=== PATIENT | male | born 1940 | race Caucasian/White ===

== ENCOUNTER 2017-04-08 12:23 | Emergency (ER) | payer OTHER ==
[2017-04-08 12:28] VITALS: BMI 26.6
[2017-04-08] MEDS ORDERED: SODIUM CHLORIDE 1,000 ML IV STA ×2 (13:28→15:34)
[2017-04-08] MEDS ORDERED: DIPHTH,PERTUSS(ACELL),TET 0.5 ML DISP.SYRIN IM ONE (13:28)
[2017-04-08 14:10] LABS: BASOPHIL 0.6 % (0-2.0); EOSINOPHIL 0.1 % (0-4.5); MCH 29.6 pg (25.7-33.7); MCHC 33.8 g/dl (32.0-35.9); MEAN CELL VOLUME 87.5 fl (80-96); MEAN PLT VOLUME 8.8 fl (7.5-11.1); NEUTROPHILS 87.9 % (42.8-82.8); RDW 14.1 % (11.9-15.9); WHITE BLOOD COUNT 15.5 K/mm3 (4.0-10.0)
--- NOTE | 2017-04-08 14:33 | PDOC ---
History of Present Illness - General Chief Complaint: Syncope/Near Syncope Stated Complaint: SYNCOPE, LAST WELL KNOWN 11:30PM 04/07 Time Seen by Provider: 04/08/17 13:20 History Source: Patient Exam Limitations: No Limitations - History of Present Illness Initial Comments: 04/08/17 14:22 76-year-old male presents to the emergency room with complaints of laceration to his right foot along with scratches to his lower extremities. Patient states unsure exactly how he fell but states went to bed at around 11:30 and next thing he knows he woke up on the floor with a broken nightstand nearby and lacerations to lower extremities. Patient states unsure exactly what happened and denies any chest pain, headache, visual changes, fever or chills presently. Patient states is on baby aspirin along with Plavix but denies any other blood thinners. Patient denies any recent illness, recent change in diet, or history of seizures. 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 Presenting Symptoms: Syncope Timing/Duration: reports: gone now Associated Symptoms: Yes: Syncope Past History - Travel Traveled outside of the country in the last 30 days: Yes - Past Medical History Allergies/Adverse Reactions: Allergies Allergy/AdvReac Type Severity Reaction Status Date / Time Sulfa (Sulfonamide Allergy Verified 04/08/17 12:28 Antibiotics) Home Medications: Ambulatory Orders Insulin Glargine,Hum.rec.anlog [Lantus (10mL VIAL) -] 50 units SQ HS 08/12/14 Metoprolol Succinate [Toprol XL -] 200 mg PO DAILY 08/12/14 Pantoprazole Sodium [Protonix] 40 mg PO DAILY 08/12/14 Amlodipine Besylate 5 mg PO DAILY 05/27/15 Insulin Lispro [Humalog] 5 unit SQ TID 05/27/15 Furosemide [Lasix -] 20 mg PO DAILY #30 tablet 10/12/15 Tamsulosin HCl [Flomax -] 0.4 mg PO DAILY@0830 #0 cap.er.24h 10/12/15 Aspirin [ASA -] 81 mg PO DAILY 04/08/17 Clopidogrel Bisulfate [Clopidogrel] 75 mg DAILY 04/08/17 Ramipril 5 mg PO DAILY 04/08/17 Anemia: No Asthma: No Cancer: Yes (larynx) Cardiac Disorders: Yes ([place] 2002, 12 stents) CVA: No COPD: No CHF: No Dementia: No Diabetes: Yes GI Disorders: No Disorders: No HTN: Yes Hypercholesterolemia: Yes Liver Disease: No Seizures: No Thyroid Disease: No - Surgical History Abdominal Surgery: No Appendectomy: Yes Cardiac Surgery: Yes (12 stents) Cholecystectomy: Yes Lung Surgery: No Neurologic Surgery: No Orthopedic Surgery: No - Psycho/Social/Smoking Cessation Hx Anxiety: No Suicidal Ideation: No Smoking History: Never smoked Have you smoked in the past 12 months: No If you are a former smoker, when did you quit?: 5 YRS Cigars Per Day: 0 Information on smoking cessation initiated: No Hx Alcohol Use: No Drug/Substance Use Hx: No Substance Use Type: None Hx Substance Use Treatment: No Patient Lives Alone: Yes Lives with/in: lives alone Cardiac Specific PMH - Complaint Specific PMHX Cardiac Stent: Yes Pacemaker: No Review of Systems - Review of Systems Able to Perform ROS?: Yes Constitutional: No: Symptoms Reported HEENTM: No: Symptoms Reported Respiratory: No: Symptoms reported Cardiac (ROS): Yes: Syncope ABD/GI: No: Symptoms Reported : No: Symptoms Reported Musculoskeletal: No: Symptoms Reported Integumentary: Yes: Other (laceration to right 3rd toe) Neurological: No: Weakness, Dizziness Hematologic/Lymphatic: No: Symptoms Reported *Physical Exam - Vital Signs Last Vital Signs Temp Pulse Resp BP Pulse Ox 98.1 F 82 18 141/60 100 04/08/17 18:36 04/08/17 18:36 04/08/17 18:36 04/08/17 18:36 04/08/17 16:03 - Physical Exam General Appearance: Yes: Nourished, Appropriately Dressed. No: Apparent Distress HEENT: positive: EOMI, OFELIA, TMs Normal (no hemotympanum), Pharynx Normal. negative: Pale Conjunctivae Neck: positive: Supple. negative: Tender, Decreased range of motion Respiratory/Chest: positive: Lungs Clear, Normal Breath Sounds. negative: Respiratory Distress, Accessory Muscle Use Cardiovascular: positive: Regular Rhythm, Regular Rate. negative: Murmur Gastrointestinal/Abdominal: positive: Soft. negative: Tenderness Musculoskeletal: negative: CVA Tenderness, Vertebral Tenderness Extremity: positive: Normal Capillary Refill, Normal Inspection, Normal Range of Motion. negative: Tender Integumentary: positive: Normal Color, Warm, Other (noted superficial abrasions to bilateral anterior lower legs. noted 2cm linear laceration over dosal aspect of rt 3rd toe) Neurologic: positive: Normal Mood/Affect, Motor Strength 5/5 (ambulatory ) Heart Score/ECG Review - History History: Slightly suspicious - Electrocardiogram EKG: Normal - Age Age: >/= 65 - Risk Factors Risk Factors Heart Score: Yes Hx Hypercholesterolemia, Yes Hx Hypertension Based on the list above the patient has:: 1-2 risk factors - Troponin Troponin: </= normal limit - Score Heart Score - Total: 3 - ECG Intrepretation Rhythm: Regular Rhythm Comment:: 04/08/17 14:39 nsr at [address] depression or elevation. Procedures - Laceration/Wound Repair Right 3rd digit Wound Length: to 2.5 cm Wound Explored: clean Wound's Depth, Shape: superficial, linear Irrigated w/ Saline: Yes Betadine Prep: Yes Wound Repaired With: Steri-strips, Dermabond Sterile Dressing Applied: Yes ED Treatment Course - LABORATORY CBC & Chemistry Diagram: 04/08/17 13:35 04/08/17 13:35 - ADDITIONAL ORDERS Additional order review: 04/08/17 13:35 RBC 4.52 D MCV 87.5 MCHC 33.8 RDW 14.1 MPV 8.8 Neutrophils % 87.9 H D Lymphocytes % 4.4 L D Monocytes % 7.0 Eosinophils % 0.1 D Basophils % 0.6 - RADIOLOGY Radiology Studies Ordered: Category Date Time Status CERVICAL SPINE CT W/O CONTR [CT] Stat CT Scan 04/08/17 13:[address] WITHOUT CONTRAST [CT] Stat CT Scan 04/08/17 13:52 Completed CHEST X-RAY PORTABLE* [RAD] Stat Radiology 04/08/17 13:28 Completed TOE(S) RIGHT [RAD] Stat Radiology 04/08/17 13:52 Completed - Medications Given in the ED: ED Medications Discontinued Medications Generic Name Dose Route Start Last Admin Trade Name Freq PRN Reason Stop Dose Admin Aspirin 325 mg 04/08/17 17:37 04/08/17 18:18 Asa - PO 04/08/17 17:38 325 mg ONCE ONE Administration Diphtheria/Tetanus/Acell Pertussis 0.5 ml 04/08/17 13:28 04/08/17 13:54 Boostrix - IM 04/08/17 13:29 0.5 ml .ONCE ONE Administration Sodium Chloride 1,000 mls @ 1,000 mls/hr 04/08/17 13:28 04/08/17 14:00 Normal Saline - IV 04/08/17 14:27 1,000 mls/hr ASDIR STA Administration Sodium Chloride 1,000 mls @ 1,000 mls/hr 04/08/17 15:34 04/08/17 16:03 Normal Saline - IV 04/08/17 16:33 1,000 mls/hr ASDIR STA Administration Medical Decision Making - Critical Care Time Total Critical Care Time (minutes): 45 Critical Care Statement: The care of this patient involved high complexity decision making to prevent further life threatening deterioration of the patient 's condition and/or to evaluate & treat vital organ system(s) failure or risk of failure. - Medical Decision Making 04/08/17 14:40 pt s/p syncopal episode last night. Pt unable to recall the episode. Pt with laceration to rt foot. Pt concerning for cardiac vs neurological deficit. Patient ordered for head and cervical ct. Patient also ordered for labs, right toe x-ray, tetanus, and chest x-ray. 04/08/17 16:50 Toe x-ray shows no acute fracture. Findings raising possibility of gout. Head CT and cervical CT negative. Chest x-ray otherwise negative. Patient ordered for second liter of normal saline bolus secondary to elevated CK and troponin of 0.17. Due to patient's history of cardiac disease with stents states has been discussed patient's operating room aide Dr. Rodrigez at [facility] who wants patient transferred to [facility] for cardiac. Patient denies chest pain, shortness of breath palpitations nausea or dizziness. Patient on monitor with normal sinus rhythm. 04/08/17 16:53 Laboratory Tests 04/08/17 04/08/17 04/08/17 13:35 13:35 13:35 WBC 15.5 H D Hgb 13.4 D Hct 39.6 D Neutrophils % 87.9 H D INR Sodium 141 Potassium 4.2 Chloride 106 Carbon Dioxide 25 Anion Gap 10 BUN 52 H D Creatinine 2.1 H D Creat Clearance w eGFR 30.94 Random Glucose 122 H D Calcium 8.6 Magnesium 1.9 Total Bilirubin 0.8 D AST 74 H D ALT 36 D Alkaline Phosphatase 88 Creatine Kinase 2815 H Creatine Kinase Index 1.2 CK-MB (CK-2) 36.506 H Troponin I 0.17 H Total Protein 6.7 Albumin 3.6 Urine Ketones Urine Nitrite Ur Leukocyte Esterase Blood Type A POSITIVE 04/08/17 04/08/17 13:53 16:00 WBC Hgb Hct Neutrophils % INR 1.06 Sodium Potassium Chloride Carbon Dioxide Anion Gap BUN Creatinine Creat Clearance w eGFR Random Glucose Calcium Magnesium Total Bilirubin AST ALT Alkaline Phosphatase Creatine Kinase Creatine Kinase Index CK-MB (CK-2) Troponin I Total Protein Albumin Urine Ketones Pending Urine Nitrite Pending Ur Leukocyte Esterase Pending Blood Type *DC/Admit/Observation/Transfer Diagnosis at time of Disposition: CAD (coronary artery disease), Rhabdomyolysis, Elevated troponin, Syncope - Discharge Dispostion Disposition: TRANSFER ACUTE CARE/OTHER HOSP - Transfer to Acute Care Facility Receiving Facility: [facility] Accepting Physician:: lynette
[2017-04-08 14:37] LABS: INR 1.06 (0.82-1.09); PROTHROMBIN TIME (PATIENT) 11.7 SEC (9.98-11.88)
[2017-04-08 14:40] LABS: PLATELET COMMENT2 UNABLE TO ENUMERATE; PLATELET ESTIMATE ADEQUATE (NORMAL)
[2017-04-08 14:41] LABS: ALBUMIN 3.6 g/dl (3.4-5.0); ANION GAP 10 (8-16); BILIRUBIN,TOTAL 0.8 mg/dL (0.2-1.0); CALCIUM 8.6 mg/dL (8.5-10.1); CO2 25 mmol/L (21-32); CREATININE 2.1 mg/dL (0.7-1.3); GLUCOSE,RANDOM 122 mg/dL (74-106); MAGNESIUM 1.9 mg/dL (1.8-2.4); SGOT/AST 74 U/L (15-37); SGPT/ALT 36 U/L (12-78); TOT PROT 6.7 g/dl (6.4-8.2)
[2017-04-08 14:53] LABS: ALK PHOS 88 U/L (45-117); TROPONIN I 0.17 ng/ml (0.00-0.05)
[2017-04-08 14:54] LABS: CPK 2815 IU/L (39-308)
[2017-04-08 16:36] LABS: URINE APPEARANCE CLEAR; URINE BILIRUBIN NEGATIVE (NEGATIVE); URINE BLOOD 3+ (NEGATIVE); URINE COLOR STRAW; URINE GLUCOSE (UA) NEGATIVE (NEGATIVE); URINE KETONE NEGATIVE (NEGATIVE); URINE LEUK ESTERASE NEGATIVE (NEGATIVE); URINE NITRITE NEGATIVE (NEGATIVE); URINE UROBILINOGEN NEGATIVE mg/dL (0.2-1.0)
--- NOTE | 2017-04-08 17:19 | PDOC ---
*Physical Exam - Vital Signs Last Vital Signs Temp Pulse Resp BP Pulse Ox 97.9 F 87 18 147/61 100 04/08/17 12:25 04/08/17 16:03 04/08/17 16:03 04/08/17 16:03 04/08/17 16:03 ED Treatment Course - LABORATORY CBC & Chemistry Diagram: 04/08/17 13:35 04/08/17 13:35 - ADDITIONAL ORDERS Additional order review: Laboratory Results 04/08/17 04/08/17 04/08/17 13:53 13:35 13:35 INR 1.06 Sodium 141 Potassium 4.2 Chloride 106 Carbon Dioxide 25 Anion Gap 10 BUN 52 H D Creatinine 2.1 H D Creat Clearance w eGFR 30.94 Random Glucose 122 H D Calcium 8.6 Magnesium 1.9 Total Bilirubin 0.8 D AST 74 H D ALT 36 D Alkaline Phosphatase 88 Creatine Kinase 2815 H Creatine Kinase Index 1.2 CK-MB (CK-2) 36.506 H Troponin I 0.17 H Total Protein 6.7 Albumin 3.6 Blood Type A POSITIVE Antibody Screen Negative 04/08/17 13:35 RBC 4.52 D MCV 87.5 MCHC 33.8 RDW 14.1 MPV 8.8 Neutrophils % 87.9 H D Lymphocytes % 4.4 L D Monocytes % 7.0 Eosinophils % 0.1 D Basophils % 0.6 - Medications Given in the ED: ED Medications Discontinued Medications Generic Name Dose Route Start Last Admin Trade Name Freq PRN Reason Stop Dose Admin Diphtheria/Tetanus/Acell Pertussis 0.5 ml 04/08/17 13:28 04/08/17 13:54 Boostrix - IM 04/08/17 13:29 0.5 ml .ONCE ONE Administration Sodium Chloride 1,000 mls @ 1,000 mls/hr 04/08/17 13:28 04/08/17 14:00 Normal Saline - IV 04/08/17 14:27 1,000 mls/hr ASDIR STA Administration Sodium Chloride 1,000 mls @ 1,000 mls/hr 04/08/17 15:34 04/08/17 16:03 Normal Saline - IV 04/08/17 16:33 1,000 mls/hr ASDIR STA Administration Medical Decision Making - Medical Decision Making 04/08/17 17:18 Agree with ROOFER HELPER's evaluation, assessment, and plan. 76 M with syncopal episode. EKG shows new TWI in I and AVL. trop 0.17 Spoke with pt's pipe processor Dr. Rodrigez at [facility], who would like pt transferred to the [facility] equipment operator/laborer unit. *DC/Admit/Observation/Transfer Diagnosis at time of Disposition: CAD (coronary artery disease), Rhabdomyolysis, Elevated troponin, Syncope - Discharge Dispostion Disposition: TRANSFER ACUTE CARE/OTHER HOSP
[2017-04-08 17:28] LABS: URINE PROTEIN 2+ (NEGATIVE)
[2017-04-08 17:34] LABS: URINE MUCUS RARE; URINE RBC 1 /hpf (0-3); URINE WBC 1 /hpf (3-5)
[2017-04-08] MEDS ORDERED: ASPIRIN 325 MG TABLET PO ONE (17:37)
[2017-04-08] MEDS ORDERED: ASPIRIN 325 MG TABLET ONE (18:16)
[2017-04-08 18:40] VITALS: BP 141/60; PULSE 82; TEMP 98.1
--- NOTE | 2017-04-09 09:06 | EKG ---
Test Reason : Blood Pressure : / mmHG Vent. Rate : 084 BPM Atrial Rate : 084 BPM P-R Int : 170 ms QRS Dur : 080 ms QT Int : 378 ms P-R-T Axes : 033 010 074 degrees QTc Int : 446 ms NORMAL SINUS RHYTHM Confirmed by MAGDALENO SINGH MD ([id number]) on 04/09/2017 9:06:30 AM Referred By: Confirmed By:MAGDALENO SINGH MD
== END 2017-04-08 19:13 | disposition short-term general hospital (02) ==
LOC: JER 12:23
PROC: 3E0234Z Introduction of Serum, Toxoid and Vaccine into Muscle, Percutaneous Approach (ICD-10-PCS; principal; 2017-04-08)
PROC: 3E0337Z Introduction of Electrolytic and Water Balance Substance into Peripheral Vein, Percutaneous Approach (ICD-10-PCS; 2017-04-08)
DX: I25.10 Atherosclerotic heart disease of native coronary artery without angina pectoris (principal); M62.82 Rhabdomyolysis; R55 Syncope and collapse; R79.9 Abnormal finding of blood chemistry, unspecified
CPT/HCPCS: 36415; 70450-TC; 71010-TC; 72125-TC; 73660-TC; 80053; 81003; 81015; 82553; 83735; 84484; 85025; 85610; 86850; 86900; 86901; 90715; 93005; 93010; 99284-25